=== PATIENT | female | born 1980 | race Two or more races ===

== ENCOUNTER 2019-07-02 16:59 | Emergency (ER) | payer OTHER ==
[~2019-07-02] VITALS: Ht 160 cm; Wt 80.7 kg
[~2019-07-02 16:59] MED LIST: AVAPRO150 MG; DOLOGESIC CAPLE1 TAB PO; DOXYCYCLINE HY100 MG PO; FENOFIBRATE150 MG; IMODIUM A-D2 MG PO; LIPITOR20 MG; LUTERA1 TAB; NAPROXEN500 MG PO; PEPCID40 MG PO; SYNTHROID50 MCG PO; ZOFRAN4 MG PO; ZYRTEC10 M3
[2019-07-02] MEDS ORDERED: LEVOTHYROXINE25 MCG (17:30)
[2019-07-02] MEDS ORDERED: COZAAR50 MG (17:31)
[2019-07-02] MEDS ORDERED: LIPITOR20 MG (17:31)
[2019-07-02] MEDS ORDERED: SINGULAIR 4MG4 MG (17:32)
[2019-07-02] MEDS ORDERED: ZYRTEC10 M3 (17:32)
== END 2019-07-02 22:48 | disposition home or self-care (01) ==
LOC: ER 16:59
DX: E11.65 Type 2 diabetes mellitus with hyperglycemia (principal)

== ENCOUNTER 2019-12-15 12:09 | Emergency (ER) | payer OTHER ==
[~2019-12-15] VITALS: Ht 160 cm; Wt 74.4 kg
[~2019-12-15 12:09] MED LIST changes: +COZAAR50 MG; +LEVOTHYROXINE25 MCG; +SINGULAIR 4MG4 MG
== END 2019-12-15 15:25 | disposition home or self-care (01) ==
LOC: ER 12:09
DX: R06.02 Shortness of breath (principal)